=== PATIENT | female | born 1980 ===

== ENCOUNTER 2024-11-21 03:16 | Outpatient (CLI) | payer MEDICAID, SELFPAY ==
--- NOTE | 2024-11-21 07:00 | DI.RAD_ITS ---
Exam(s) XR FOOT LT COMPLETE EXAM: XR FOOT LT COMPLETE CLINICAL HISTORY: Left foot pain,M79.672. TECHNIQUE: 2D digital imaging was performed of the left foot. Three images were obtained. AP, obli que and lateral views were obtained. COMPARISON: No exams were available for comparison FINDINGS: BONES: No acute fracture is present. No bony destructive lesion is seen. There is a bipartite medial sesamoid at the head of the 1st metatarsal bone. There is a small enthesophyte at the posterior calc aneus. There is a small plantar calcaneal spur. JOINTS: No dislocation present. There is a mild hallux valgus deformity. The joint spaces are otherw ise well maintained. SOFT TISSUE: Normal. IMPRESSION: 1. No acute abnormality. 2. Mild hallux valgus deformity. 3. Calcaneal spurs. DATA REPOSITORY: RADIATION DOSE DELIVERED:
--- NOTE | 2024-11-21 07:00 | DI.RAD_ITS ---
Exam(s) XR FOOT RT COMPLETE EXAM: XR FOOT RT COMPLETE CLINICAL HISTORY: Right foot pain,M79.671. TECHNIQUE: 2D digital imaging was performed of the right foot. Three images were obtained. AP, obl ique and lateral views were obtained. COMPARISON: No exams were available for comparison FINDINGS: BONES: No acute fracture is present. No bony destructive lesion is seen. There is a small enthesophyt e at the posterior calcaneus. There is an accessory ossicle adjacent to the navicular bone. JOINTS: No dislocation present. The joint spaces are well maintained. SOFT TISSUE: Normal. IMPRESSION: No acute abnormality. DATA REPOSITORY: RADIATION DOSE DELIVERED:
== END 2024-11-21 03:36 ==
LOC: DI 03:16
PROVIDERS: PCP Family Medicine; Visit Provider Podiatrist
DX: M79.671 Pain in right foot (principal); M79.672 Pain in left foot
CPT/HCPCS: 73630

== ENCOUNTER 2024-12-20 00:56 | Outpatient (CLI) | payer MEDICAID, SELFPAY ==
--- NOTE | 2024-12-20 07:00 | DI.MRI_ITS ---
Exam(s) MR LOWER JOINT LT WO EXAM: MR LOWER JOINT LT WO CLINICAL HISTORY: Recalcitrant heel pain/ Need Hindfoot PF insertion,PLANTAR FASCITIS,M72.2. TECHNIQUE: Multiplanar multisequence MRI was performed.. COMPARISON: Plain films 21 November 2024 FINDINGS: BONES/JOINTS: No evidence of fracture. No evidence of bone lesion. No joint space narrowing identifie d. No joint effusion identified. tiny plantar calcaneal spur. LIGAMENTS: The medial and lateral collateral ligaments are intact. MUSCULOTENDINOUS STRUCTURES: There is mild thickening and minimal edema in the plantar fascia at the insertion on the calcaneus. No discrete tear. The visualized intrinsic muscles and tendons of the f oot are unremarkable. SOFT TISSUES: Venous varicosities noted in the medial soft tissues. IMPRESSION: Mild plantar fasciitis. DATA REPOSITORY:
--- NOTE | 2024-12-20 07:00 | DI.MRI_ITS ---
Exam(s) MR LOWER JOINT RT WO EXAM: MR LOWER JOINT RT WO CLINICAL HISTORY: Heel pain, insertion plantar fascia hindfoot image,PLANTAR FASCITIS,M72.2. TECHNIQUE: Multiplanar multisequence MRI Examination was performed. COMPARISON: None. FINDINGS: BONES/JOINTS: Edema in the inferior calcaneus. Small plantar spur. No evidence of fracture. No evid ence of suspicious bone lesion. No joint space narrowing identified. No joint effusion identified. LIGAMENTS: No gross evidence of ligament tear. MUSCULOTENDINOUS STRUCTURES: There is thickening of the plantar fascia at the calcaneus with some payton ma. No discrete tear. The visualized muscles tendons of the ankle and foot are unremarkable. SOFT TISSUES: Unremarkable. IMPRESSION: Findings consistent with plantar fasciitis. No discrete tear. DATA REPOSITORY:
== END 2024-12-20 01:16 ==
LOC: DI 00:56
PROVIDERS: PCP Family Medicine; Visit Provider Podiatrist
DX: M72.2 Plantar fascial fibromatosis (principal)
CPT/HCPCS: 73721